=== PATIENT | female | born 2000 | race Caucasian/White ===

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

== ENCOUNTER 2019-06-28 06:22 | Emergency (ER) | payer MEDICAID, OTHER ==
[2019-06-28] MEDS ORDERED: LORazepam TAB(*) 1 MG PO ONE (06:35)
[2019-06-28] MEDS ORDERED: NS 0.9% 1000 ML** 1,000 ML IV ONE (06:36)
--- NOTE | 2019-06-28 06:37 | ED ---
Substance Abuse/Use - HPI Summary HPI Summary: 19 year old female presents with palpitations today. She took some Ritalin Benadryl and smoked some pot and she started to feel like she was having a panic attack. She denies any chest pain or shortness breath. No fevers. No sinus congestion or sore throat. No vomiting. No nausea or diarrhea. Feels like her muscles are cramping. She's never had this before. Has no medical conditions. Has not taking any medications on the daily basis. She denies any SI or HI. - History Of Current Complaint Chief Complaint: EDPsychosocial Stated Complaint: PANIC ATTACK PER PT Time Seen by Provider: 06/28/19 06:30 Hx Last Menstrual Period: 06/09/18 - Allergies/Home Medications Allergies/Adverse Reactions: Allergies Allergy/AdvReac Type Severity Reaction Status Date / Time No Known Allergies Allergy Verified 06/09/18 16:48 Home Medications: Home Medications Multivitamins/Minerals TAB* [Theragran/minerals TAB*] 1 tab PO DAILY 06/28/19 [ History Confirmed 06/28/19] PMH/Surg Hx/FS Hx/Imm Hx Endocrine/Hematology History: Denies: Hx Diabetes Sensory History: Denies: Hx Legally Blind, Hx Deafness Opthamlomology History: Denies: Hx Legally Blind - Surgical History Surgery Procedure, Year, and Place: 04/2018 Infectious Disease History: No Infectious Disease History: Denies: Traveled Outside the [place] in Last 30 Days - Family History Known Family History: Negative: Diabetes - Social History Alcohol Use: Rare Substance Use Type: Reports: Marijuana - methamphetamine, Other Substance Use Comment - Amount & Last Used: hx marijuana Smoking Status (MU): Light Every Day Tobacco Smoker Amount Used/How Often: 1/2ppd Review of Systems Negative: Fever, Chills Positive: Palpitations. Negative: Chest Pain Negative: Shortness Of Breath Positive: Other - muscle cramps All Other Systems Reviewed And Are Negative: Yes Physical Exam Triage Information Reviewed: Yes Vital Signs On Initial Exam: Initial Vitals Temp Pulse Resp BP Pulse Ox 100.6 F 148 20 134/106 100 06/28/19 06:24 06/28/19 06:24 06/28/19 06:24 06/28/19 06:24 06/28/19 06:24 Vital Signs Reviewed: Yes Appearance: Positive: Well-Appearing Skin: Positive: Warm, Dry Head/Face: Positive: Normal Head/Face Inspection Eyes: Positive: Normal, Conjunctiva Clear Respiratory/Lung Sounds: Positive: Clear to Auscultation, Breath Sounds Present Cardiovascular: Positive: Tachycardia Abdomen Description: Positive: Nontender, Soft Bowel Sounds: Positive: Present Musculoskeletal: Positive: Normal Neurological: Positive: Normal Psychiatric: Positive: Normal Procedures - Sedation Patient Received Moderate/Deep Sedation with Procedure: No Diagnostics - Vital Signs Vital Signs Temp Pulse Resp BP Pulse Ox 06/28/19 06:24 100.6 F 148 20 134/106 100 - Laboratory Result Diagrams: 06/28/19 06:50 06/28/19 06:50 Lab Statement: Any lab studies that have been ordered have been reviewed, and results considered in the medical decision making process. Re-Evaluation - Re-Evaluation First Eval Re-Evaluation Time: 08:18 Comment: feeling better after fluids and ativan, heart rate 80 Course/Dx - Course Course Of Treatment: 19 year old female presents with palpitations today. She took some Ritalin Benadryl and smoked some pot and she started to feel like she was having a panic attack. She denies any chest pain or shortness breath. No fevers. No sinus congestion or sore throat. No vomiting. No nausea or diarrhea. Feels like her muscles are cramping. She's never had this before. Has no medical conditions. Has not taking any medications on the daily basis. on exam is tachycardic. Appears anxious. lung clear to auscultation. Abdomen soft nontender. feeling better after fluids and ativan. wbc 14. crp normal. electrolytes normal. denies any uti symptoms so will wait for final culture for senstivity. told to not use ritalin without prescription. patient understand and agrees with plan. - Diagnoses Differential Diagnosis/HQI/PQRI: Positive: Anxiety, Drug Abuse Provider Diagnoses: Substance abuse, Anxiety, Palpitations Discharge ED - Sign-Out/Discharge Documenting (check all that apply): Patient Departure - Discharge Plan Condition: Good Disposition: HOME Patient Education Materials: Polysubstance Abuse (ED) Referrals: Elza Cuellar DO [Primary Care Provider] - Additional Instructions: Drink plenty of fluids Follow up with primary Return to ED if develop any new or worsening symptoms - Billing Disposition and Condition Condition: GOOD Disposition: Home - Attestation Statements Provider Attestation: I was available for consult. This patient was seen by the WAYNE. The patient was not presented to, seen by, or examined by me. Blu Gordon MD
[2019-06-28 07:03] LABS: ABS Basophils 0.1 10^3/ul (0-0.2); ABS Eosinophils 0.1 10^3/ul (0-0.6); ABS Lymphocytes 4.3 10^3/ul (1.0-4.8); ABS Monocytes 1.1 10^3/ul (0-0.8); ABS Neutrophils 8.5 10^3/ul (1.5-7.7); Eosinophil % 0.4 %; Hematocrit 40 % (35-47); Hemoglobin 13.8 g/dL (12.0-16.0); Mean Corpuscular HGB Conc 35 g/dL (31-36); Mean Corpuscular Hemoglobin 32 pg (27-31); Mean Corpuscular Volume 92 fL (80-97); Mean Platelet Volume 7.5 fL (7.4-10.4); Platelet Count 314 10^3/uL (150-450); Red Blood Count 4.31 10^6 /uL (3.70-4.87); Red Cell Distribution Width 13 % (10-15)
[2019-06-28 07:20] LABS: ALT 11 U/L (7-52); AST 16 U/L (13-39); Albumin 4.6 g/dL (3.2-5.2); Albumin/Globulin Ratio 1.4 (1-3); Alkaline Phosphatase 65 U/L (34-104); Anion Gap 8 mmol/L (2-11); BUN/Creatinine Ratio 9.3 (8-20); Blood Urea Nitrogen 7 mg/dL (6-24); C Reactive Protein < 1.00 mg/L (<8.01); CO2 Carbon Dioxide 23 mmol/L (22-32); Calcium 9.8 mg/dL (8.6-10.3); Chloride 105 mmol/L (101-111); Creatine Kinase 57 U/L (10-223); EGFR African American 119.2 (>60); EGFR Non-African American 98.5 (>60); Globulin 3.2 g/dL (2-4); Glucose 129 mg/dL (70-100); Magnesium 1.9 mg/dL (1.9-2.7); Potassium 3.5 mmol/L (3.5-5.0); Sodium 136 mmol/L (135-145); Total Protein 7.8 g/dL (6.4-8.9)
[2019-06-28 08:10] LABS: Urine Appearance Clear; Urine Bilirubin Negative (Negative); Urine Blood Negative (Negative); Urine Color Yellow; Urine Glucose Negative (Negative); Urine Ketones 1+ (Negative); Urine Nitrite Negative (Negative); Urine Protein Negative (Negative); Urine Urobilinogen Negative (Negative)
[2019-06-28 08:17] LABS: Urine Benzodiazepine Screen None Detected (None Detect); Urine Opiates Screen None Detected (None Detect)
[2019-06-28 08:20] VITALS: BP 98/67
[2019-06-28 08:22] LABS: Urine Bacteria 1+ (Absent); Urine Red Blood Cell Trace(0-2/hpf) (Absent); Urine Squamous Epithelial Cell Present (Absent); Urine White Blood Cell 1+(6-10/hpf) (Absent)
== END 2019-06-28 08:19 | disposition home or self-care (01) ==
LOC: ED 06:22
DX: R00.2 Palpitations (principal); F19.10 Other psychoactive substance abuse, uncomplicated; F41.9 Anxiety disorder, unspecified; F17.210 Nicotine dependence, cigarettes, uncomplicated; R25.2 Cramp and spasm; Z79.899 Other long term (current) drug therapy
CPT/HCPCS: 36415; 80053; 80307; 81003; 81015; 82550; 83735; 85025; 86140; 87086; 99282; A9270-GY; G0480

== ENCOUNTER 2020-01-20 18:29 | Inpatient (IN) ==
[2020-01-20] MEDS ORDERED: Nicotine GUM 4MG FRUIT FLAVOR PO PRN (20:29)
[2020-01-20] MEDS ORDERED: Nicotine GUM 4MG FRUIT FLAVOR PO ONE (20:35)
[2020-01-20 20:54] LABS: Urine Appearance Clear; Urine Bilirubin Negative (Negative); Urine Blood 1+ (Negative); Urine Color Straw; Urine Glucose Negative (Negative); Urine Ketones Negative (Negative); Urine Nitrite Negative (Negative); Urine Protein Negative (Negative); Urine Specific Gravity 1.002 (1.010-1.030); Urine Urobilinogen Negative (Negative)
[2020-01-20 21:01] LABS: Urine Bacteria Absent (Absent); Urine Red Blood Cell Trace(0-2/hpf) (Absent); Urine Squamous Epithelial Cell Present (Absent); Urine White Blood Cell Absent (Absent)
[2020-01-20 21:15] LABS: Urine Benzodiazepine Screen None Detected (None Detect); Urine Cannabinoids Screen Presumptive Positive (None Detect); Urine Opiates Screen None Detected (None Detect)
[2020-01-20 21:18] LABS: ABS Lymphocytes 2.1 10^3/ul (1.0-4.8); ABS Monocytes 0.7 10^3/ul (0-0.8); ABS Neutrophils 8.2 10^3/ul (1.5-7.7); Eosinophil % 0.2 %; Hematocrit 41 % (35-47); Hemoglobin 13.8 g/dL (12.0-16.0); Lymphocyte % 18.8 %; Mean Corpuscular HGB Conc 34 g/dL (31-36); Mean Corpuscular Hemoglobin 32 pg (27-31); Mean Corpuscular Volume 94 fL (80-97); Mean Platelet Volume 7.5 fL (7.4-10.4); Platelet Count 268 10^3/uL (150-450); Red Blood Count 4.33 10^6 /uL (3.70-4.87); Red Cell Distribution Width 12 % (10-15)
[2020-01-20 21:32] LABS: ALT 9 U/L (7-52); AST 15 U/L (13-39); Albumin 4.9 g/dL (3.2-5.2); Albumin/Globulin Ratio 1.6 (1-3); Alkaline Phosphatase 61 U/L (34-104); Anion Gap 8 mmol/L (2-11); BUN/Creatinine Ratio 11.1 (8-20); Blood Urea Nitrogen 9 mg/dL (6-24); CO2 Carbon Dioxide 25 mmol/L (22-32); Calcium 9.7 mg/dL (8.6-10.3); Chloride 106 mmol/L (101-111); EGFR African American 109.1 (>60); EGFR Non-African American 90.1 (>60); Glucose 105 mg/dL (70-100); Potassium 4.1 mmol/L (3.5-5.0); Sodium 139 mmol/L (135-145); Total Protein 7.9 g/dL (6.4-8.9)
[2020-01-20 21:39] LABS: Acetaminophen < 15 mcg/mL; Alcohol, S < 10 mg/dL (<10); Salicylate < 2.50 mg/dL (<30)
[2020-01-20 21:55] LABS: TSH Ultra Thyroid Stim Horm 2.72 mcIU/mL (0.34-5.60)
[2020-01-21] MEDS ORDERED: Al Hydrox/Mg Hydrox/Simet LIQ 30 ML UDC PO PRN (01:07)
[2020-01-21] MEDS: Nicotine GUM 2MG FRUIT FLAVOR PO PRN (02:30)
[2020-01-21] MEDS: Nicotine PATCH 14 MG/24 HR PATCH TRANSDERM SCH (08:41)
[2020-01-21] MEDS: Vitamin THERAPEUTIC TAB PO SCH (08:42)
[2020-01-21 10:51] LABS: HCG Pregnancy < 0.60 mIU/mL
[2020-01-22] MEDS: Nicotine GUM 2MG FRUIT FLAVOR PO PRN (10:03)
[2020-01-22] MEDS: Nicotine PATCH 14 MG/24 HR PATCH TRANSDERM SCH (10:54)
[2020-01-22] MEDS: Vitamin THERAPEUTIC TAB PO SCH (10:55)
[2020-01-22] MEDS: MULTIVITAMIN PO SCH (10:56)
[2020-01-22] MEDS: CRANBERRY EXTRACT 500 MG PO SCH (10:56)
[2020-01-22] MEDS: IRON 65 MG PO SCH (10:56)
[2020-01-22] MEDS: [UNRECOGNIZED DRUG - OTHER] PO SCH (10:56)
[2020-01-22] MEDS: POTASSIUM SUPPLEMENT PO SCH (10:56)
[2020-01-23] MEDS: Nicotine PATCH 14 MG/24 HR PATCH TRANSDERM SCH (08:35)
[2020-01-23] MEDS: IRON 65 MG PO SCH (09:49)
[2020-01-23] MEDS: CRANBERRY EXTRACT 500 MG PO SCH (09:49)
[2020-01-23] MEDS: POTASSIUM SUPPLEMENT PO SCH (09:49)
[2020-01-23] MEDS: [UNRECOGNIZED DRUG - OTHER] PO SCH (09:49)
[2020-01-23] MEDS: MULTIVITAMIN PO SCH (09:49)
[2020-01-23] MEDS: Nicotine GUM 2MG FRUIT FLAVOR PO PRN (09:58)
[2020-01-23] MEDS: Vitamin THERAPEUTIC TAB PO SCH (10:00)
[2020-01-24 08:31] VITALS: BP 112/82
[2020-01-24] MEDS: POTASSIUM SUPPLEMENT PO SCH (08:34)
[2020-01-24] MEDS: IRON 65 MG PO SCH (08:34)
[2020-01-24] MEDS: CRANBERRY EXTRACT 500 MG PO SCH (08:34)
[2020-01-24] MEDS: [UNRECOGNIZED DRUG - OTHER] PO SCH (08:36)
[2020-01-24] MEDS: MULTIVITAMIN PO SCH (08:36)
[2020-01-24] MEDS: Nicotine GUM 2MG FRUIT FLAVOR PO PRN (08:37)
[2020-01-24] MEDS ORDERED: Venlafaxine XR 75 mg PO SCH (09:00)
[2020-01-24] MEDS: Vitamin THERAPEUTIC TAB PO SCH (09:56)
[2020-01-24] MEDS: Nicotine PATCH 14 MG/24 HR PATCH TRANSDERM SCH (09:56)
== END 2020-01-24 13:13 | disposition home or self-care (01) | DRG 751 ==
LOC: ED 18:29 → BSU 23:47
PROVIDERS: ADMIT Psychiatry & Neurology Psychiatry; ATTEND Psychiatry & Neurology Psychiatry